=== PATIENT | male | born 1945 | race African-American/Black ===

== ENCOUNTER 2018-01-11 17:42 | Emergency (ER) | payer OTHER ==
[~2018-01-11] VITALS: Ht 182.9 cm; Wt 99.8 kg
[~2018-01-11 17:42] MED LIST: ALDACTONE25 MG; CALAN80 MG; COLCHICINE0.6 MG; COLCRYS0.6 MG; INDOCIN SR75 MG; LASIX40 MG; METOPROLOL SUCC25 MG; PLAVIX75 MG; PROTONIX40 MG PO; TARKA 1/2401 BOTTLE; VASOTEC5 MG; VERAPAMIL HCL240 M1; ZAROXOLYN2.5 M1; ZYLOPRIM300 MG
[2018-01-11] MEDS ORDERED: OMEPRAZOLE10 MG (17:54)
[2018-01-11] MEDS ORDERED: GLIPIZIDE5 MG (17:54)
== END 2018-01-12 19:24 | disposition home or self-care (01) ==
LOC: ER 17:42 → CPU-OBS 17:52 → ER 01-12 19:24
DX: I50.9 Heart failure, unspecified (principal); R06.02 Shortness of breath; R06.09 Other forms of dyspnea; R07.89 Other chest pain; M94.0 Chondrocostal junction syndrome [Tietze]; I10 Essential (primary) hypertension; N18.3 Chronic kidney disease, stage 3 (moderate)